=== PATIENT | male | born 1995 | race African-American/Black ===

== ENCOUNTER 2017-10-19 19:45 | Emergency (ER) | payer MEDICAID ==
[~2017-10-19] VITALS: Ht 182.9 cm; Wt 86.2 kg
[2017-10-19 19:55] VITALS: BP 118/60
--- NOTE | 2017-10-19 19:57 | ED.ADGEN ---
Past History Past Medical History: No Pertinent History Past Surgical History: No Surgical History Adult General Chief Complaint Chief Complaint Right hand injury HPI HPI Patient injured his right hand playing basketball 5 days ago. Since then, he's had pain and swelling in his right lateral hand with decreased range of motion secondary to pain and swelling. He notes no other injury. Review of Systems Review of Systems Constitutional: Denies fever or chills Eyes: Denies change in visual acuity, redness, or eye pain HENT: Denies nasal congestion or sore throat Respiratory: Denies cough or shortness of breath Cardiovascular: No additional information not addressed in HPI GI: Denies abdominal pain, nausea, vomiting, bloody stools or diarrhea : Denies dysuria or hematuria Musculoskeletal: Patient has right hand pain and swelling Integument: Denies rash or skin lesions Neurologic: Denies headache, focal weakness or sensory changes Endocrine: Denies polyuria or polydipsia All other systems were reviewed and found to be within normal limits, except as documented in this note. Allergies Allergies Allergies Coded Allergies Type Severity Reaction Last Updated Verified No Known Drug Allergies 10/19/17 No Physical Exam Physical Exam Constitutional: Well developed, well nourished, no acute distress, non-toxic appearance. HENT: Normocephalic, atraumatic, bilateral external ears normal, oropharynx moist, no oral exudates, nose normal. Eyes: PERRLA, EOMI, conjunctiva normal, no discharge. Neck: Normal range of motion, no tenderness, supple, no stridor. Cardiovascular:Heart rate regular rhythm, no murmur Lungs & Thorax: Bilateral breath sounds clear to auscultation Abdomen: Bowel sounds normal, soft, no tenderness, no masses, no pulsatile masses. Skin: Warm, dry, no erythema, no rash. Back: No tenderness, no CVA tenderness. Extremities: with right 4th metacarpal tenderness and swelling with mild deformity at base of 4th metacarpal. ROM decreased thought thumb finger apposition intact. Distal sensation intact to light touch and position sense. no cyanosis, no clubbing, no edema. Distal capillary refill less than 2 seconds. Neurologic: Alert and oriented X 3, normal motor function, normal sensory function, no focal deficits noted. Psychologic: Affect normal, judgement normal, mood normal. Current Patient Data Vital Signs Vital Signs Date Time Temp Pulse Resp B/P (MAP) Pulse Ox O2 Delivery O2 Flow Rate FiO2 10/19/17 19:55 97.7 82 16 100 Room Air EKG EKG [] Radiology/Procedures Radiology/Procedures [address] [address] IMAGING REPORT Signed PATIENT: GILDA SANCHEZ ACCOUNT: [id number] : 1995 LOCATION: ER AGE: 22 SEX: M EXAM STATUS: DEP ER ORD. PHYSICIAN: FLORES BONDS MD REASON: BASKETBALL INJURY, PAIN AND SWELLING IN RIGHT HAND PROCEDURE: HAND RIGHT 3V Indication: Vascular injury. Right hand pain TECHNIQUE: 3 views of the right hand COMPARISON: None FINDINGS: Nondisplaced oblique fracture is seen through the proximal diaphysis of the fourth metacarpal with no extension to the articular surface. IMPRESSION: As above. Electronically signed by: Sarthak Rizo DO (10/19/2017 9:52 PM) [facility] DICTATED AND SIGNED BY: SARTHAK RIZO DO DATE: 10/19/172150 CC: FLORES BONDS MD; PCP,NO ~ Patient placed in right ulnar gutter splint by sewing pattern layout technician. Distal sensation and capillary refill normal pre an post splint application. Final Impression Final Impression Clinical Impression Right 4th metacarpal fracture Mame Disclaimer Mame Disclaimer This electronic medical record was generated, in whole or in part, using a voice recognition dictation system. Departure Departure: Impression: Primary Impression: Fracture of fourth metacarpal bone of right hand Disposition: 01 HOME, SELF-CARE Condition: STABLE Referrals: YAAKOV BONILLA MD Follow-up tomorrow for further evaluation Patient Instructions: Hand Fracture, Metacarpals, [id number] Additional Instructions: Follow-up with Dr. Bonilla orthopedics tomorrow for further valuation Keep your splint clean and dry. If you develop worse pain, swelling, numbness, weakness, change in color skin return to the Emergency Department immediately Scripts Ibuprofen (IBUPROFEN) 800 Mg Tablet 800 MG PO TIDWMEALHC for 5 Days, #15 MG Prov: FLORES BONDS MD 10/19/17 FLORES BONDS MD Oct 19, 2017 19:57
[2017-10-19] MEDS ORDERED: IBUP800T19 PO (21:20)
--- NOTE | 2017-10-19 21:55 | RAD ---
Indication: Vascular injury. Right hand pain TECHNIQUE: 3 views of the right hand COMPARISON: None FINDINGS: Nondisplaced oblique fracture is seen through the proximal diaphysis of the fourth metacarpal with no extension to the articular surface. IMPRESSION: As above. Electronically signed by: Sarthak Rizo DO (10/19/2017 9:52 PM) [facility]
== END 2017-10-19 21:45 | disposition home or self-care (01) ==
LOC: ER 19:45
DX: S62.394A Other fracture of fourth metacarpal bone, right hand, initial encounter for closed fracture (principal); W50.0XXA Accidental hit or strike by another person, initial encounter; Y93.67 Activity, basketball; Y92.89 Other specified places as the place of occurrence of the external cause; Y99.8 Other external cause status
CPT/HCPCS: 29125; 73130; 99284

== ENCOUNTER 2018-12-11 15:54 | Emergency (ER) | payer SELFPAY ==
[~2018-12-11] VITALS: Ht 180.3 cm; Wt 93.1 kg
[~2018-12-11 15:54] MED LIST: IBUP800T19 PO
[2018-12-11 15:55] VITALS: BP 128/62
[2018-12-11] MEDS ORDERED: MELO7.5T29 PO (16:28)
[2018-12-11] MEDS ORDERED: AMOX500T PO (16:28)
[2018-12-11] MEDS ORDERED: HYDR-3165 PO (16:28)
--- NOTE | 2018-12-11 16:28 | PHYS DOC ---
Past History Past Medical History: No Pertinent History Past Surgical History: No Surgical History Smoking: Non-smoker Alcohol Use: Occasionally Drug Use: None Adult General Chief Complaint Chief Complaint: Toothache HPI HPI Patient is a 23-year-old male presents with left upper dental pain. This started several months ago, got better after seeing a dentist at home in [place], however has become worse again in the past 2 days. He never followed up with the dentist for definitive care and treatment because of coming here for college. Denies any hot or cold sensitivity. Denies any new injury. Denies any fever. No difficulty swallowing or breathing.[] Review of Systems Review of Systems Constitutional: Denies fever or chills [] Eyes: Denies change in visual acuity, redness, or eye pain [] HENT: Denies nasal congestion or sore throat, see history of present illness [] Respiratory: Denies cough or shortness of breath [] Cardiovascular: No chest pain or palpitations[] GI: Denies abdominal pain, nausea, vomiting, bloody stools or diarrhea [] : Denies dysuria or hematuria [] Musculoskeletal: Denies back pain or joint pain [] Integument: Denies rash or skin lesions [] Neurologic: Denies headache, focal weakness or sensory changes [] Endocrine: Denies polyuria or polydipsia [] All other systems were reviewed and found to be within normal limits, except as documented in this note. Allergies Allergies Allergies Coded Allergies Type Severity Reaction Last Updated Verified No Known Drug Allergies 10/19/17 No Physical Exam Physical Exam Constitutional: Well developed, well nourished, no acute distress, non-toxic appearance. [] HENT: Normocephalic, atraumatic, bilateral external ears normal, oropharynx moist, no oral exudates, there is tenderness to percussion over tooth 15. No drainable abscess appreciated. Uvula is midline, no tonsillar exudate, no swelling of the floor the mouth. No maxillary sinus tenderness to percussion. Nose normal. [] Eyes: PERRLA, EOMI, conjunctiva normal, no discharge. [] Neck: Normal range of motion, no tenderness, supple, no stridor. No cervical lymphadenopathy [] Cardiovascular:Heart rate regular rhythm, no murmur [] Lungs & Thorax: Bilateral breath sounds clear to auscultation [] Abdomen: Not examined. [] Skin: Warm, dry, no erythema, no rash. [] Back: No tenderness, no CVA tenderness. [] Extremities: No tenderness, no cyanosis, no clubbing, ROM intact, no edema. [] Neurologic: Alert and oriented X 3, normal motor function, normal sensory function, no focal deficits noted. [] Psychologic: Affect normal, judgement normal, mood normal. [] EKG EKG [] Radiology/Procedures Radiology/Procedures [] Course & Med Decision Making Course & Med Decision Making Pertinent Labs and Imaging studies reviewed. (See chart for details) ED course: Patient arrived, was placed in bed, and tolerated exam well. Findings and plan were discussed with the patient who voiced understanding. All questions were answered. He was discharged in improved condition. Medical decision making: Patient with dental pain, possible periapical abscess and so we'll cover with oral outpatient antibiotics and pain medicine. No evidence of meningitis, encephalitis, Jose angina, nor systemic toxicity.[] Dragon Disclaimer Dragon Disclaimer This electronic medical record was generated, in whole or in part, using a voice recognition dictation system. Departure Departure: Impression: Primary Impression: Pain, dental Additional Impression: Periapical abscess Disposition: HOME, SELF-CARE Condition: IMPROVED Referrals: PCP,NO (PCP) Patient Instructions: Dental Abscess, Dental Pain Additional Instructions: Follow-up with your regular doctor or dental clinic in 2 days. A list of local dental clinics will be provided for you. Take the medication as prescribed. Return to the ER if worsening pain or any other concerns. Scripts Hydrocodone Bit/Acetaminophen (NORCO 5-325 TABLET) 1 Each Tablet 1 TAB PO Q4-6HRS for severe pain, #20 TAB Prov: STEVAN CLAY DO 12/11/18 Meloxicam (MELOXICAM) 7.5 Mg Tablet 7.5 MG PO DAILY for PAIN, #20 TAB Prov: STEVAN CLAY DO 12/11/18 Amoxicillin (AMOXICILLIN) 500 Mg Tablet 500 MG PO TID for DENTAL INFECTION for 10 Days, #30 TAB Prov: STEVAN CLAY DO 12/11/18 Problem Qualifiers STEVAN CLAY DO Dec 11, 2018 16:28
--- NOTE | 2018-12-11 23:44 | PN ---
DATE: 12/11/2018 SUBJECTIVE: The patient was seen today, met with the staff, chart reviewed. The patient continues to have problems including confusion and also physical problems. The patient had a chest x-ray today. The patient apparently has gained 20 pounds in the past 3-4 days. The patient also had a fall. Apparently, just had a bruise on his hip. The patient also having shortness of breath. The patient was seen by Dr. Godinez. OBSERVATION: VITAL SIGNS: Temperature 98.1, blood pressure 154/83, pulse 61, respirations 16, O2 sat 96%. GENERAL: Slept about 5 hours last night. The patient's appetite is fair. MEDICATIONS: The patient's current medications include Depakote 125 mg b.i.d. p.o., Zoloft 50 mg daily p.o., melatonin 3 mg at night p.o., mirtazapine 15 mg at night p.o. The patient is also on Geodon 20 mg b.i.d. p.o. and olanzapine 2.5 mg q. 2 hours p.r.n. ASSESSMENT: Major neurocognitive disorder, most likely Alzheimer's versus vascular with depression, delusions and behavioral disturbances due to generalized anxiety disorder. PLAN: To continue with the treatment. JANINA BORGES MD DR: MARTI/diallo JOB#: [id number] / [id number]
== END 2018-12-11 16:33 | disposition home or self-care (01) ==
LOC: ER 15:54
DX: K04.7 Periapical abscess without sinus (principal)
CPT/HCPCS: 99283